=== PATIENT | female | born 1960 | race Caucasian/White ===

== ENCOUNTER 2023-12-15 11:58 | Emergency (ER) | payer BC, SELFPAY ==
[2023-12-15] VITALS (7 sets, daily range): BP systolic 104–136; BP diastolic 50–87; BMI 17.3
[2023-12-15 12:49] LABS: Hemoglobin 9.3 g/dL (12.0-16.0); Mean Corp Hgb Conc. 33.2 g/dL (33.0-37.0); Mean Corpuscular Hgb 37.1 pg (27.0-31.0); Mean Corpuscular Volume 111.6 fL (81.0-99.0); Mean Platelet Volume 11.4 fL (7.4-10.4); Platelet Count 120 10^3/uL (130-400); Red Blood Cell Count 2.51 10^6/uL (4.20-5.40); Red Cell Dist. Width 16.9 % (11.5-14.5); White Blood Cell Count 6.2 10^3/uL (4.8-10.8)
[2023-12-15 13:11] LABS: Troponin I < 0.012 ng/ml
[2023-12-15 13:24] LABS: Eosinophils 2 % (0-6); Lymphocytes 36 % (20-51); Monocytes 9 % (2-9); Segmented Neutrophils 42 % (42-75)
[2023-12-15 13:25] LABS: Atypical Lymphocytes 10 %; Normal RBC Morphology Yes; Platelets Checked Yes; Total Cells Counted 100
[2023-12-15 13:35] LABS: ALT (SGPT) < 10 U/L (0-35); AST (SGOT) 20 U/L (14-36); Albumin 4.2 g/dl (3.5-5.0); Alkaline Phosphatase 69 U/L (38-126); Blood Urea Nitrogen 11 mg/dl (7-17); Calcium 9.9 mg/dl (8.4-10.2); Carbon Dioxide 25 mmol/L (22-30); Chloride 105 mmol/L (98-107); Glucose 93 mg/dl (70-99); Potassium 3.6 mmol/L (3.5-5.1); Sodium 139 mmol/L (135-145); Total Bilirubin 0.7 mg/dl (0.2-1.3); Total Protein 7.2 g/dl (6.3-8.2); eGFR > 60.00
--- NOTE | 2023-12-15 15:40 | ED.GENMED ---
History of Present Illness
General
Chief Complaint: Chest Pain
Source: patient
Exam Limitations: none
Time Seen by Provider: 12/15/23 14:21
Nursing documentation reviewed up to this point in time: agreed with
Travel History
Have you had any contact with someone who has COVID-19?: No
Do you have any symptoms of coronavirus? Fever > 100 degrees, chills, cough, shortness of breath, sore throat, loss of taste or smell, muscle aches, or headache?: No
History of Present Illness
History of Present Illness:
63 y/o F with h/o right sided chest pain x 3-4 days
pt says she thoguht it was indigestion so she didn't come in until now
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
not on pain managemenet
says that with the chest pain th epat 3-4 days, she has had worsening of her chronic R sided neck stiffeness/pain
she doesn't take anything for it
she feels some limited ROM and like her neck is pulled to the right laterally. she has not had any truama
no arm/leg weakness
but she does have pain radiating into her righ tarm at times
this is nto a new problem but it is flared up more than usual
she doesn't take chronic pain meds other than
also with chronic cough worse than usual, with productivitity with yellowish sputum
Past History
Past History
ED Past Medical History: COPD, GERD, HTN and Other (Neuromuscular myopathy)
ED Past Surgical History: Orthopedic (Perfusion)
Social History
Tobacco: Smoker
Alcohol: Binge drinker (Daughter tells me the patient has been binge drinking)
Review of Systems
Review of Systems
Allergies reviewed?: Yes
All Other Systems: Not applicable
Phy Exam
Physical Exam
Physical Exam:
GENERAL: Alert , in no apparent distress
EYE: pupils equal and reactive
NECK: Mild torticollis, right-sided SCM is slightly tense but she can range it, no meningismus signs, able to flex 30 degrees, palpable hardware underneath the skin
ENT: o/p clr, mmm.
CARDIAC: Regular rate and rhythm .no edema
LUNGS: rhonchi, wheezing, prolonged expiration, no tachypnea
ABDOMEN: Soft, without focal tenderness, no r/g, no cvat, normal bowel sounds
NEUROLOGICAL: Alert and oriented, no focal neuro deficits
SKIN: Warm and dry, skin intact.
MUSCULOSKELETAL: No edema, well perfused. neg hardik's sign
PSYCH: Normal and appropriate interaction.
Scores
Heart Score for Chest Pain Patients
STEMI patient?: No
History: Slightly or Non-Suspicious
ECG: Nonspecific Repolarization
Age: >45 - <65 years
Risk Factors: 1 or 2 Risk Factors
Troponin: </= Normal Limit
Heart Score for Chest Pain Patients: 3
Heart Score Risk: 2.5% MACE over next 6 weeks
Course
Orders/Labs/Results
Orders:
Orders
12/15/23 12:01
EKG [Electrocardiogram (*1)] Urgent
Reason for Study: Chest Pain
EKG- Treatment ONCE
12/15/23 12:36
Complete Blood Count/With Diff Urgent
Comprehensive Metabolic Panel Urgent
Manual Differential Urgent
Troponin I Urgent
12/15/23 15:02
CT Chest Pe Study Urgent
Comment:
Reason For Exam: right sided chestp ain into neck, sob
EKG- Treatment ONCE
Ipratropium/Albuterol Sulfate [Duoneb] 3 ml INH R NOW STA
diazePAM [Valium Injection] 5 mg IV NOW STA
12/15/23 15:30
Electrocardiogram (*1) Urgent
Reason for Study: Chest Pain
12/15/23 15:53
Troponin I Urgent
12/15/23 16:35
Diazepam [Valium] 5 mg PO NOW STA
12/15/23 18:16
HYDROmorphone [Dilaudid] 0.5 mg IV NOW STA
12/15/23 18:39
MethylPREDNISolone PF [Solu-Medrol Pf] 125 mg IV NOW STA
12/15/23 19:36
Ipratropium/Albuterol Sulfate [Duoneb] 3 ml .ROUTE .STK-MED ONE
12/15/23 19:39
Ipratropium/Albuterol Sulfate [Duoneb] 3 ml INH R NOW ONE
Abnormal Lab Results
12/15/23
12:36
RBC 2.51 L 10^6/uL
(4.20-5.40)
Hgb 9.3 L g/dL
(12.0-16.0)
Hct 28.0 L %
(37.0-47.0)
MCV 111.6 H fL
(81.0-99.0)
MCH 37.1 H pg
(27.0-31.0)
RDW 16.9 H %
(11.5-14.5)
Plt Count 120 L 10^3/uL
(130-400)
MPV 11.4 H fL
(7.4-10.4)
12/15/23 12:36
12/15/23 12:36
Vital Signs
Initial and Last Documented VS:
Initial Vital Signs
Temp Pulse Resp BP Pulse Ox
97.8 F 73 18 136/77 99
12/15/23 12:10 12/15/23 12:10 12/15/23 12:10 12/15/23 12:10 12/15/23 12:10
Last Documented Vital Signs
Temp Pulse Resp BP Pulse Ox
98.4 F 71 14 122/73 95
12/15/23 15:36 12/15/23 19:15 12/15/23 19:15 12/15/23 19:00 12/15/23 19:15
MDM/Problems Addressed
Differential Diagnosis Includes:
copd exac, ACS, PE,
much less likely aortic dissection, carotid dissection,
torticollis/chronic neck pain/radiculopathy
MDM/Problems Addressed:
63 y/o F with a complex medical history
here with right sided upper chest pain and R neck pain x 4 days
no trauma
says her right neck stiffness/tightness is chronic but flares up when she has some stress or other issues going on
she has no weakness/numbness in the arms or legs
her chest pain is pleuritic, worse with chronic cough which is slightly worse than usual
she doesn't have exertional chest pain and doesn't feel overly sob
no edema
no fever
on exam no rash
holds right upper chest when she coughs
wheezing b/l, rhonchi on R
neck is not meningitic, appeas like a little stiffness/torticollis
treated with valium which also heped with her anxiety
daughter spoke with me about pt's alcoho use, apparently has beensignificant but not as much wrecently
she has some tremors and thinks that is related to alcohol use but also parkinsons
pt has no other symptoms or signs of withdrawal
and she did oipen up to me about her alcohol use and says it is much lower
pain relieved in neck with dose of dialudid
ekg not ischemic but there is a t wave inv v2 which is probably lead placement
trop x 2 neg
ct pe neg
wheezing much improve dwith duoneb
treat pain/wheezing with prednsone, azithro, nebs
and d/c with valium short course
pt agreeable.
wants to be discharged, will return if worse
*Critical Care Note
Total Time (30-74mins, 75-104mins- exclusive of procedures): Not Applicable
ED Attending Note
-
Portions of this chart may have been created with voice recognition software.� Occasional wrong word or��sound alike� substitutions may have occurred due to the inherent limitations of voice recognition software.
Discharge Plan
Departure
Patient Disposition: Home (Routine Discharge)
Date of Disposition: 12/15/23
Time of Disposition: 19:31
Patient with high blood pressure during this ER visit?: No
Condition: Fair
Covid-19: Not Applicable
Discharge Problem:
COPD (chronic obstructive pulmonary disease), Chronic neck pain, Anemia
Instructions: Chest Pain That Is Not Caused by the Heart (DC), Chronic Obstructive Pulmonary Disease (COPD) (DC), Chronic pain
Prescriptions:
New
prednisone 20 mg tablet
40 mg PO DAILY Qty: 8 0RF
albuterol sulfate 2.5 mg /3 mL (0.083 %) solution for nebulization
2.5 mg inhalation QID PRN (Reason: bronchospasm) Qty: 75 0RF
azithromycin [Zithromax Z-Skinny] 250 mg tablet
See Rx Instructions .ROUTE .COMPLEX Qty: 6 0RF
Rx Instructions:
2 tabs po day 1 then 1 tab po daily x 4 days
diazepam [Valium] 5 mg tablet
5 mg PO BID PRN (Reason: muscle spasm) Qty: 12 0RF
Referrals:
Jorge Maldonado MD [Active] - Follow up in 5-7 days
NONE,* [Family Provider] -
Activity Restrictions/Additional Instructions:
Your CAT scan showed no signs of pneumonia or blood clot. You probably have a COPD exacerbation. Starting tomorrow take prednisone 2 tablets once a day for 4 more days. Use the albuterol nebulizer every 6 hours as needed for cough and wheezing.
For the pain in your neck you should use Tylenol 2 or 3 times a day as needed. Stop taking Aleve while you are on the prednisone. You can also take the Valium 5 mg tablet every 8-12 hours as needed for neck pain and stiffness. Avoid taking this
at the same time as your gabapentin and avoid this with alcohol. Please return for any worsening symptoms like passing out, worsening shortness of breath, worsening chest pain, arm or leg weakness, fever or chills etc.
Interventions
Interventions:
*Risk Screen - Suicide Last Done: 12/15/23 12:10
*General Assessment Last Done: 12/15/23 12:10
*Neglect/Abuse Screening Last Done: 12/15/23 12:10
ED- Fall Risk Assessment Last Done: 12/15/23 13:53
*ED COVID-19 Vaccine History Last Done: 12/15/23 19:48
*Nursing Disposition Last Done: 12/15/23 19:48
ED- Cardiac Assessment Last Done: 12/15/23 13:53
Discharge Date and Time
Discharge Date/Time: 12/15/23 19:49
Print Language: AUSTRALIAN
[2023-12-15] MEDS: VALIUM INJECTION 5 MG IV (15:50)
[2023-12-15] MEDS: DUONEB 3 ML INH ×2 (15:50→19:39)
[2023-12-15 16:39] LABS: Troponin I < 0.012 ng/ml
[2023-12-15] MEDS: VALIUM 5 MG PO (16:58)
[2023-12-15] MEDS: DILAUDID 0.5 MG IV (18:23)
[2023-12-15] MEDS: SOLU-MEDROL PF 125 MG IV (19:04)
== END 2023-12-15 19:49 | disposition home or self-care (01) ==
LOC: EMR 11:58
PROVIDERS: Emergency Medicine; Physician Assistant; EMERGENCY PHYSICIAN Student in an Organized Health Care Education/Training Program
DX: J44.9 Chronic obstructive pulmonary disease, unspecified (principal); G89.29 Other chronic pain; M54.2 Cervicalgia; D64.9 Anemia, unspecified
CPT/HCPCS: 99285; 96374; 96375 ×2; 94640; 71275; 80053; 84484; 85025; 93005; Q9967